=== PATIENT | male | born 1980 | race Caucasian/White ===

== ENCOUNTER 2020-07-17 19:30 | Emergency (ER) | payer SELFPAY ==
[2020-07-17 20:15] VITALS: BP 137/101; PULSE 91; RESP 14; TEMP 37; O2SAT 97; BMI 31.8
--- NOTE | 2020-07-17 20:44 | ED_ITS ---
HPI - General Adult General: Chief complaint: General Medical Stated complaint: SORES Time Seen by Provider: 07/17/20 20:24 History of Present Illness: HPI narrative: Patient has sores on her hands arms and legs after standing hotel 3 weeks ago so she said she developed the sores she has been digging at them with her fingernails. says he looked at a microscope and what he is pulled out appear to be looking like scabies that he see on the Internet MD complaint: Scabies Severity: mild Associated symptoms: Deny chest pain, dyspnea, headache(s), nausea, rash or vomiting Review of Systems Const: Denies: fever(s), chills or body aches Eyes: Denies: change in vision or blurry vision ENMT: Denies: throat pain or nasal congestion Card: Denies: chest pain or dyspnea on exertion Resp: Denies: dyspnea, productive cough or non-productive cough GI: Denies: abdominal pain, nausea or vomiting : Denies: difficulty urinating Musc: Denies: extremity pain Skin/Breast: Reports: other (Sores arms legs hands); Denies: rash Neuro: Denies: headache(s) Psych: Denies: anxiety or depression Loyd/Lymph: Denies: easy bruising PFSH ED PFSH: Social History (Updated 12/12/19 @ 17:35 by Latrice Soriano LPN) Smoking and tobacco status: former smoker Physical Exam Const: COMMON NORMALS: no acute distress, average body habitus and patient oriented x3 HENMT: COMMON NORMALS: normocephalic HEAD & SCALP: normal to inspection and normocephalic FACE & SINUS: normal facial exam Eye: COMMON NORMALS: conjunctivae normal GENERAL EYE: appearance normal, both eyes and all related structures CONJUNCTIVA: Yes conjunctivae normal Neck/C-Spine: COMMON NORMALS: no JVD Chest: COMMONS NORMALS: normal inspection of the chest Resp: COMMON NORMALS: normal respiratory effort and clear to auscultation bilaterally AUSCULTATION: clear to auscultation bilaterally Cardio: COMMON NORMALS: no JVD, regular rate and regular rhythm RATE: regular rate RHYTHM: regular rhythm GI: COMMON NORMALS: Normal to inspection, nondistended, normoactive bowel sounds present Extremity: COMMON NORMALS: normal to inspection and full ROM Neuro: COMMON NORMALS: patient oriented x3 Skin: NARRATIVE SKIN EXAM: Has open sores that appear to be mechanically created by scratching at them on her arms legs and hands macular no erythema Course Vital Signs: Vital signs: Vital Signs Temperature 98.6 F 07/17/20 20:15 Pulse Rate 91 07/17/20 20:15 Respiratory Rate 14 07/17/20 20:15 Blood Pressure 137/101 07/17/20 20:15 Pulse Oximetry 97 07/17/20 20:15 Discharge Plan Discharge Patient Disposition: Home Clinical Impression: Scabies Condition: Stable Prescriptions: New permethrin 5 % cream 1 applic TOPICAL Q14D Qty: 60 RF: 0 albendazole 200 mg tablet 400 mg PO ONCE 2 Days Qty: 4 RF: 0 Discharge Orders: Discharge Order (Routine); Ordered 07/17/20 Ordered By: Tommy Lester Referrals: Jaylon Gibbs MD [Primary Care Provider] - Discharge Diet: Usual diet Discharge Activity: Resume usual activity Patient Instructions: Scabies (ED) Activity Restrictions/Additional Instructions: Follow-up Dr. Fuller if no significant improvement. Take medication as directed. Coding Level of Care Code ED [employer]ary [employer] for Adam Cheema
[2020-07-17 20:55] VITALS: PULSE 78; RESP 18; O2SAT 98
== END 2020-07-17 20:56 | disposition home or self-care (01) ==
PROVIDERS: Emergency Provider Nurse Practitioner Family; PCP Family Medicine
DX: B86 Scabies (principal); Z87.891 Personal history of nicotine dependence
CPT/HCPCS: 12345; 99282